=== PATIENT | male | born 1960 | race American Indian/Alaskan Native ===

== ENCOUNTER 2018-02-09 07:35 | Emergency (ER) | payer BC, OTHER ==
[~2018-02-09] VITALS: Ht 175.3 cm; Wt 82.2 kg
[2018-02-09 07:57] LABS: BASOPHILS % (AUTO) 0.3 % (0-1); EOSINOPHILS # (AUTO) 0.2 X10'3 (0-0.9); EOSINOPHILS % (AUTO) 2.4 % (0-6); HEMATOCRIT 38.4 % (42.0-52.0); HEMOGLOBIN 12.9 g/dl (14.0-17.9); LYMPHOCYTES # (AUTO) 0.7 X10'3 (1.1-4.8); LYMPHOCYTES % (AUTO) 9.1 % (21-51); MEAN CORPUSCULAR HEMOGLOBIN 29.5 PG (27.0-31.0); MEAN CORPUSCULAR HGB CONC 33.5 % (33.0-36.5); MEAN PLATELET VOLUME 7.8 FL (7.4-10.4); MONOCYTES # (AUTO) 0.8 X10'3 (0-0.9); MONOCYTES % (AUTO) 10.4 % (2-12); NEUTROPHILS # (AUTO) 5.9 X10'3 (1.8-7.7); NEUTROPHILS % (AUTO) 77.8 % (42-75); PLATELET COUNT 292 X10'3 (140-440); RED BLOOD COUNT 4.37 X10'6 (4.70-6.10); RED CELL DISTRIBUTION WIDTH 15.3 % (11.5-14.5); WHITE BLOOD COUNT 7.5 X10'3 (4.5-11.0)
[2018-02-09 08:13] LABS: ALANINE AMINOTRANSFERASE 12 U/L (12-78); ALBUMIN 3.4 G/DL (3.4-5.0); ALBUMIN/GLOBULIN RATIO 0.8 (1.1-1.5); ALKALINE PHOSPHATASE 67 IU/L (46-116); AMYLASE 66 U/L (25-115); ANION GAP 9 (8-16); ASPARTATE AMINO TRANSFERASE 13 U/L (10-37); BILIRUBIN,TOTAL 0.3 MG/DL (0.1-1.0); BLOOD UREA NITROGEN 18 MG/DL (7-18); BUN/CREATININE RATIO 17.6 (5.4-32.0); CALCIUM 8.7 MG/DL (8.5-10.1); CHLORIDE 104 MMOL/L (99-107); CREATININE 1.02 MG/DL (0.60-1.10); GLUCOSE 114 MG/DL (70-104); LIPASE 110 U/L (73-393); POTASSIUM 3.4 MMOL/L (3.5-5.1); SODIUM 142 MMOL/L (135-145); TOTAL CARBON DIOXIDE 28.9 MMOL/L (24-32); TOTAL PROTEIN 7.8 G/DL (6.4-8.2); eGFR 75 ML/MIN
[2018-02-09 08:14] LABS: PROTHROMBIN TIME 10.2 SECONDS (9.0-12.0)
[2018-02-09] MEDS ORDERED: ondansetron 4mg rapidly disintigrating tab PO ONE (08:20)
[2018-02-09] MEDS ORDERED: mag hydrox/Alum hydrox/simeth 30ml oral suspension PO ONE (08:30)
[2018-02-09 08:46] LABS: COLOR,URINE YELLOW (Yellow); GLUCOSE, URINE NEGATIVE (Neg); KETONES,URINE NEGATIVE (Neg); LEUKOCYTE ESTERASE ,URINE NEGATIVE (Neg); NITRITES, URINE NEGATIVE (Neg); OCCULT BLOOD,URINE SMALL (Neg); PH,URINE 5.5 (4.8-8.0); PROTEIN,URINE NEGATIVE (Neg); UROBILINOGEN,URINE 0.2 E.U/dL (0.2-1.0)
[2018-02-09 08:56] LABS: CLARITY,URINE SLIGHTLY CLOUDY (Clear); UA COLLECTION TYPE CLN CATCH MIDSTREAM
[2018-02-09 08:58] LABS: BACTERIA,URINE NONE SEEN /HPF (Neg); MUCUS STRANDS MANY /LPF (Neg); RBC,URINE 0-2 /HPF (0-2); SQUAMOUS EPITHELIAL CELL,UR NONE SEEN /LPF (FEW); WBC,URINE 0-4 /HPF (0-4)
[2018-02-09] MEDS: morphine 4 MG/ML inj SYRINge IV PRN ×2 (09:40→10:24)
[2018-02-09] MEDS ORDERED: morphine 4 MG/ML inj SYRINge IV ONE (10:15)
[2018-02-09] MEDS ORDERED: ONDA4TAB6 PO (10:34)
[2018-02-09 10:45] VITALS: BP 136/74
[2018-02-09] MEDS ORDERED: PRED5TAB PO (23:56)
[2018-02-09] MEDS ORDERED: METH2.5T PO (23:56)
== END 2018-02-09 10:43 | disposition home or self-care (01) ==
LOC: ER 07:36
DX: R10.13 Epigastric pain (principal); R11.0 Nausea
CPT/HCPCS: 36415; 74176; 80053; 81001; 82150; 83690; 85025; 85610; 96374; 96376; 99285; J2270

== ENCOUNTER 2018-02-09 23:46 | Inpatient (IN) | payer BC ==
[~2018-02-09] VITALS: Ht 172.7 cm; Wt 80.0 kg
[~2018-02-09 23:46] MED LIST: ONDA4TAB6 PO
[2018-02-09] MEDS ORDERED: HYDROmorphone 1 mg/ml syringe IV PRN (23:55)
[2018-02-09] MEDS ORDERED: normal saline 1000ML IV soln IVB ONE ×2 (23:55)
[2018-02-09] MEDS ORDERED: diphenhydrAMINE 50 mg/ml inj IV ONE (23:55)
[2018-02-09] MEDS ORDERED: metoclopramide 5 mg/ml inj IV ONE (23:55)
[2018-02-09] MEDS ORDERED: LORazepam 2 mg/ml vial IV ONE (23:55)
[2018-02-09] MEDS ORDERED: PRED5TAB PO (23:56)
[2018-02-09] MEDS ORDERED: METH2.5T PO (23:56)
[2018-02-10] VITALS (31 sets, daily range): BP systolic 94–125; BP diastolic 56–82
[2018-02-10 00:23] LABS: ALANINE AMINOTRANSFERASE 18 U/L (12-78); ALBUMIN/GLOBULIN RATIO 0.7 (1.1-1.5); ALKALINE PHOSPHATASE 60 IU/L (46-116); ANION GAP 10 (8-16); ASPARTATE AMINO TRANSFERASE 14 U/L (10-37); BILIRUBIN,TOTAL 0.8 MG/DL (0.1-1.0); BLOOD UREA NITROGEN 12 MG/DL (7-18); BUN/CREATININE RATIO 10.8 (5.4-32.0); CALCIUM 8.5 MG/DL (8.5-10.1); CHLORIDE 102 MMOL/L (99-107); CREATININE 1.11 MG/DL (0.60-1.10); GLUCOSE 123 MG/DL (70-104); LIPASE 74 U/L (73-393); POTASSIUM 3.6 MMOL/L (3.5-5.1); SODIUM 140 MMOL/L (135-145); TOTAL CARBON DIOXIDE 28.5 MMOL/L (24-32); TOTAL PROTEIN 7.2 G/DL (6.4-8.2); eGFR 68 ML/MIN
[2018-02-10 00:48] LABS: BASOPHILS % (AUTO) 0 % (0-1); EOSINOPHILS # (AUTO) 0.1 X10'3 (0-0.9); EOSINOPHILS % (AUTO) 0.9 % (0-6); HEMATOCRIT 38.9 % (42.0-52.0); HEMOGLOBIN 12.9 g/dl (14.0-17.9); MEAN CORPUSCULAR HEMOGLOBIN 29.3 PG (27.0-31.0); MEAN CORPUSCULAR HGB CONC 33.2 % (33.0-36.5); MEAN CORPUSCULAR VOLUME 88.3 FL (78-98); MEAN PLATELET VOLUME 8.2 FL (7.4-10.4); MONOCYTES # (AUTO) 1.5 X10'3 (0-0.9); MONOCYTES % (AUTO) 10.1 % (2-12); NEUTROPHILS # (AUTO) 12.1 X10'3 (1.8-7.7); PLATELET COUNT 308 X10'3 (140-440); RED BLOOD COUNT 4.41 X10'6 (4.70-6.10); RED CELL DISTRIBUTION WIDTH 15.5 % (11.5-14.5); WHITE BLOOD COUNT 14.7 X10'3 (4.5-11.0)
[2018-02-10 01:19] LABS: ANISOCYTOSIS 1+; PLATELET ESTIMATE NORMAL; TOTAL CELLS COUNTED 100
[2018-02-10 02:04] LABS: CLARITY,URINE CLEAR (Clear); COLOR,URINE YELLOW (Yellow); GLUCOSE, URINE NEGATIVE (Neg); KETONES,URINE 15 mg/dl (Neg); LEUKOCYTE ESTERASE ,URINE NEGATIVE (Neg); NITRITES, URINE NEGATIVE (Neg); OCCULT BLOOD,URINE SMALL (Neg); PROTEIN,URINE NEGATIVE (Neg); UROBILINOGEN,URINE 0.2 E.U/dL (0.2-1.0)
[2018-02-10] MEDS ORDERED: levoFLOXACIN-Levaquin 750MG/D5 150 ML IV STA (02:17)
[2018-02-10] MEDS ORDERED: piperacillin/tazo 3.375gm/50ml 50 ML IV STA (02:31)
[2018-02-10 02:34] LABS: UA COLLECTION TYPE CLN CATCH MIDSTREAM
[2018-02-10 02:36] LABS: BACTERIA,URINE FEW /HPF (Neg); RBC,URINE 0-2 /HPF (0-2); SQUAMOUS EPITHELIAL CELL,UR FEW /LPF (FEW); WBC,URINE 0-4 /HPF (0-4)
[2018-02-10] MEDS ORDERED: morphine 2 MG/ML inj. syringe IV PRN ×3 (03:50→12:25)
[2018-02-10] MEDS ORDERED: ondansetron/PF 4mg/2ml inj IV PRN ×2 (03:50→13:45)
[2018-02-10] MEDS: normal saline 1000ml 1,000 ML IV SCH ×3 (04:42→23:50)
[2018-02-10] MEDS ORDERED: methylPREDNISolone sod succ/PF 40mg inj. IV ONE ×2 (08:00→08:25)
[2018-02-10] MEDS: piperacillin/tazo 3.375gm/50ml 50 ML IV SCH ×3 (08:30→23:34)
[2018-02-10] MEDS ORDERED: BUPIVAcaine/PF 2.5mg/ml (0.25%) 10ml vial ONE (12:47)
[2018-02-10] MEDS ORDERED: ceFAZolin 1000mg inj ONE (12:47)
[2018-02-10] MEDS ORDERED: sevoflurane 250ml liquid IH ONE (13:04)
[2018-02-10] MEDS ORDERED: propofol inj 20 ML IV ONE (13:06)
[2018-02-10] MEDS ORDERED: midazolam 2 mg/2 ml injection ONE (13:06)
[2018-02-10] MEDS ORDERED: rocuronium 10mg/ml inj IV ONE ×2 (13:06→13:56)
[2018-02-10] MEDS ORDERED: fentaNYL /PF 50mcg/ml 5ml ampule ONE (13:06)
[2018-02-10] MEDS ORDERED: ringers solution, lacted 1,000 ML IV SCH (13:42)
[2018-02-10] MEDS ORDERED: meperidine/PF 25mg/ml syringe IV PRN ×3 (13:45)
[2018-02-10] MEDS ORDERED: morphine 4 MG/ML inj SYRINge IV PRN ×2 (13:45)
[2018-02-10] MEDS ORDERED: proCHLORperazine 10 MG/2 ml inj IV PRN (13:45)
[2018-02-10] MEDS ORDERED: dexamethasone sod phosphate 4mg/ml inj. ONE (14:01)
[2018-02-10] MEDS ORDERED: neostigmine methylsulfate 1 MG/ML 10ml vial ONE (14:24)
[2018-02-10] MEDS ORDERED: ondansetron/PF 4mg/2ml inj ONE (14:24)
[2018-02-10] MEDS ORDERED: glycopyrrolate 0.2mg/ml inj ONE (14:24)
[2018-02-10] MEDS ORDERED: CADD PCA waste documentation MC SCH (15:50)
[2018-02-10] MEDS: HYDROmorphone/NS 1 mg/ml CADD 50 ML IV SCH ×5 (16:13→23:00)
[2018-02-10] MEDS: lactobacillus rhamnosus 10,000 MMU CELLS/CAPSULE PO SCH (19:23)
[2018-02-11] VITALS: BP 104/68
[2018-02-11] MEDS: HYDROmorphone/NS 1 mg/ml CADD 50 ML IV SCH ×4 (01:00→07:00)
[2018-02-11 04:00] VITALS: BP 108/70
[2018-02-11] MEDS: normal saline 1000ml 1,000 ML IV SCH ×2 (04:27→15:03)
[2018-02-11 05:14] LABS: BASOPHILS % (AUTO) 0 % (0-1); EOSINOPHILS % (AUTO) 0 % (0-6); HEMATOCRIT 35.2 % (42.0-52.0); HEMOGLOBIN 11.6 g/dl (14.0-17.9); LYMPHOCYTES # (AUTO) 0.3 X10'3 (1.1-4.8); LYMPHOCYTES % (AUTO) 1.9 % (21-51); MEAN CORPUSCULAR HEMOGLOBIN 29.3 PG (27.0-31.0); MEAN CORPUSCULAR HGB CONC 32.9 % (33.0-36.5); MEAN CORPUSCULAR VOLUME 89.1 FL (78-98); MONOCYTES # (AUTO) 0.9 X10'3 (0-0.9); MONOCYTES % (AUTO) 5.1 % (2-12); NEUTROPHILS # (AUTO) 16.8 X10'3 (1.8-7.7); PLATELET COUNT 276 X10'3 (140-440); RED BLOOD COUNT 3.95 X10'6 (4.70-6.10); RED CELL DISTRIBUTION WIDTH 15.3 % (11.5-14.5); WHITE BLOOD COUNT 18.1 X10'3 (4.5-11.0)
[2018-02-11 05:46] LABS: ALANINE AMINOTRANSFERASE 87 U/L (12-78); ALBUMIN 2.3 G/DL (3.4-5.0); ALBUMIN/GLOBULIN RATIO 0.6 (1.1-1.5); ALKALINE PHOSPHATASE 53 IU/L (46-116); ANION GAP 9 (8-16); ASPARTATE AMINO TRANSFERASE 95 U/L (10-37); BILIRUBIN,TOTAL 0.6 MG/DL (0.1-1.0); BLOOD UREA NITROGEN 16 MG/DL (7-18); BUN/CREATININE RATIO 14.8 (5.4-32.0); CALCIUM 8.2 MG/DL (8.5-10.1); CHLORIDE 104 MMOL/L (99-107); CREATININE 1.08 MG/DL (0.60-1.10); GLUCOSE 126 MG/DL (70-104); POTASSIUM 4.2 MMOL/L (3.5-5.1); SODIUM 141 MMOL/L (135-145); TOTAL CARBON DIOXIDE 27.8 MMOL/L (24-32); TOTAL PROTEIN 6.4 G/DL (6.4-8.2); eGFR 70 ML/MIN
[2018-02-11] MEDS ORDERED: morphine 2 MG/ML inj. syringe IV PRN (09:20)
[2018-02-11] MEDS ORDERED: HYDROcodone/acetaminophen 10/325mg tab PO PRN (09:20)
[2018-02-11] MEDS: piperacillin/tazo 3.375gm/50ml 50 ML IV SCH ×3 (09:23→23:26)
[2018-02-11] MEDS: lactobacillus rhamnosus 10,000 MMU CELLS/CAPSULE PO SCH ×2 (09:23→19:31)
[2018-02-11] MEDS ORDERED: HYDROmorphone inj. 0.5 MG/0.5 ML DISP.SYRIN IV PRN (09:35)
[2018-02-11 10:08] VITALS: BP 102/61
[2018-02-11] MEDS: HYDROcodone/acetaminophen 5mg/325mg tablet PO PRN (10:35)
[2018-02-11 12:42] VITALS: BP 103/60
[2018-02-11] MEDS: enoxaparin 40mg/0.4ml syringe SUBCUT SCH (13:17)
[2018-02-11 18:00] VITALS: BP 113/73
[2018-02-12] VITALS: BP 119/66
[2018-02-12] MEDS: HYDROcodone/acetaminophen 5mg/325mg tablet PO PRN ×3 (00:49→23:41)
[2018-02-12] MEDS: normal saline 1000ml 1,000 ML IV SCH ×3 (03:03→23:41)
[2018-02-12 05:11] LABS: BASOPHILS % (AUTO) 0 % (0-1); EOSINOPHILS # (AUTO) 0.2 X10'3 (0-0.9); EOSINOPHILS % (AUTO) 1.5 % (0-6); HEMOGLOBIN 9.9 g/dl (14.0-17.9); LYMPHOCYTES # (AUTO) 0.6 X10'3 (1.1-4.8); LYMPHOCYTES % (AUTO) 3.7 % (21-51); MEAN CORPUSCULAR HEMOGLOBIN 29.1 PG (27.0-31.0); MEAN CORPUSCULAR HGB CONC 32.9 % (33.0-36.5); MEAN CORPUSCULAR VOLUME 88.3 FL (78-98); MEAN PLATELET VOLUME 8.2 FL (7.4-10.4); MONOCYTES # (AUTO) 1.2 X10'3 (0-0.9); NEUTROPHILS # (AUTO) 12.9 X10'3 (1.8-7.7); NEUTROPHILS % (AUTO) 86.8 % (42-75); PLATELET COUNT 256 X10'3 (140-440); RED CELL DISTRIBUTION WIDTH 15.6 % (11.5-14.5); WHITE BLOOD COUNT 14.9 X10'3 (4.5-11.0)
[2018-02-12 05:31] LABS: ALANINE AMINOTRANSFERASE 66 U/L (12-78); ALBUMIN 2.3 G/DL (3.4-5.0); ALBUMIN/GLOBULIN RATIO 0.6 (1.1-1.5); ALKALINE PHOSPHATASE 61 IU/L (46-116); ANION GAP 7 (8-16); ASPARTATE AMINO TRANSFERASE 45 U/L (10-37); BILIRUBIN,TOTAL 0.5 MG/DL (0.1-1.0); BLOOD UREA NITROGEN 15 MG/DL (7-18); BUN/CREATININE RATIO 14.7 (5.4-32.0); CALCIUM 8.2 MG/DL (8.5-10.1); CHLORIDE 107 MMOL/L (99-107); CREATININE 1.02 MG/DL (0.60-1.10); GLUCOSE 113 MG/DL (70-104); POTASSIUM 4.2 MMOL/L (3.5-5.1); SODIUM 145 MMOL/L (135-145); TOTAL CARBON DIOXIDE 30.7 MMOL/L (24-32); TOTAL PROTEIN 6.2 G/DL (6.4-8.2); eGFR 75 ML/MIN
[2018-02-12 07:12] VITALS: BP 115/57
[2018-02-12] MEDS: enoxaparin 40mg/0.4ml syringe SUBCUT SCH (08:00)
[2018-02-12] MEDS: piperacillin/tazo 3.375gm/50ml 50 ML IV SCH ×3 (09:45→23:41)
[2018-02-12] MEDS: lactobacillus rhamnosus 10,000 MMU CELLS/CAPSULE PO SCH ×2 (09:45→21:08)
[2018-02-12 11:00] VITALS: BP 106/61
[2018-02-12 18:00] VITALS: BP 108/66
[2018-02-13] VITALS: BP 115/63
[2018-02-13 05:08] LABS: BASOPHILS % (AUTO) 0.2 % (0-1); EOSINOPHILS # (AUTO) 0.1 X10'3 (0-0.9); EOSINOPHILS % (AUTO) 0.9 % (0-6); HEMATOCRIT 30.5 % (42.0-52.0); HEMOGLOBIN 9.9 g/dl (14.0-17.9); LYMPHOCYTES # (AUTO) 0.9 X10'3 (1.1-4.8); LYMPHOCYTES % (AUTO) 9.3 % (21-51); MEAN CORPUSCULAR HEMOGLOBIN 29.1 PG (27.0-31.0); MEAN CORPUSCULAR HGB CONC 32.4 % (33.0-36.5); MEAN CORPUSCULAR VOLUME 89.8 FL (78-98); MEAN PLATELET VOLUME 7.8 FL (7.4-10.4); MONOCYTES # (AUTO) 1.2 X10'3 (0-0.9); MONOCYTES % (AUTO) 12.2 % (2-12); NEUTROPHILS # (AUTO) 7.7 X10'3 (1.8-7.7); NEUTROPHILS % (AUTO) 77.4 % (42-75); PLATELET COUNT 285 X10'3 (140-440); RED BLOOD COUNT 3.39 X10'6 (4.70-6.10); RED CELL DISTRIBUTION WIDTH 15.7 % (11.5-14.5)
[2018-02-13 05:54] LABS: ALANINE AMINOTRANSFERASE 64 U/L (12-78); ALBUMIN 2.2 G/DL (3.4-5.0); ALBUMIN/GLOBULIN RATIO 0.5 (1.1-1.5); ALKALINE PHOSPHATASE 56 IU/L (46-116); ANION GAP 8 (8-16); ASPARTATE AMINO TRANSFERASE 39 U/L (10-37); BILIRUBIN,TOTAL 0.6 MG/DL (0.1-1.0); BLOOD UREA NITROGEN 11 MG/DL (7-18); BUN/CREATININE RATIO 10.5 (5.4-32.0); CHLORIDE 105 MMOL/L (99-107); CREATININE 1.05 MG/DL (0.60-1.10); GLUCOSE 98 MG/DL (70-104); POTASSIUM 3.6 MMOL/L (3.5-5.1); SODIUM 142 MMOL/L (135-145); TOTAL CARBON DIOXIDE 28.8 MMOL/L (24-32); TOTAL PROTEIN 6.3 G/DL (6.4-8.2); eGFR 73 ML/MIN
[2018-02-13 08:00] VITALS: BP 109/67
[2018-02-13] MEDS: lactobacillus rhamnosus 10,000 MMU CELLS/CAPSULE PO SCH (08:00)
[2018-02-13] MEDS: enoxaparin 40mg/0.4ml syringe SUBCUT SCH (08:00)
[2018-02-13] MEDS: piperacillin/tazo 3.375gm/50ml 50 ML IV SCH (09:18)
[2018-02-13 11:00] VITALS: BP 105/65
[2018-02-13] MEDS ORDERED: HYDR-4383 PO (11:52)
[2018-02-13] MEDS ORDERED: AMOX-580 PO (11:52)
== END 2018-02-13 13:10 | disposition home or self-care (01) | DRG 854 ==
LOC: ER 23:47 → ED HOLD 02-10 03:50 → ORTHO 4S 02-10 04:31 → SUR 3N 02-10 18:02
PROVIDERS: ADMIT Internal Medicine; ATTEND Family Medicine
PROC: BW211ZZ Computerized Tomography (CT Scan) of Abdomen and Pelvis using Low Osmolar Contrast (ICD-10-PCS; 2018-02-10)
PROC: 0FT44ZZ Resection of Gallbladder, Percutaneous Endoscopic Approach (ICD-10-PCS; principal; 2018-02-10 13:04)
DX: A41.9 Sepsis, unspecified organism (principal); K81.0 Acute cholecystitis; N17.9 Acute kidney failure, unspecified; D64.9 Anemia, unspecified; D86.9 Sarcoidosis, unspecified; K82.A1 Gangrene of gallbladder in cholecystitis; Z88.1 Allergy status to other antibiotic agents
CPT/HCPCS: 96361; 96374; 96375; 99285; Z7506; 36415; 74177; 80053; 81001; 83690; 84145; 85025; 87070; 93005; A7000; G0378; J0690; J1100; J1170; J1200; J1650; J1956; J2060; J2250; J2270; J2405; J2543; J2704; J2710; J2765; J2920; J3010; J3490; J7030; J7120

== ENCOUNTER 2018-02-22 14:50 | Outpatient (CLI) | payer BC ==
[~2018-02-22 14:50] MED LIST changes: +AMOX-580 PO; +HYDR-4383 PO; +METH2.5T PO; +PRED5TAB PO
[2018-02-22] MEDS ORDERED: iohexol 350MG/ML 100ml bottle IV ONE (15:04)
== END 2018-02-22 23:59 | disposition home or self-care (01) ==
LOC: 64 CT 14:50
PROVIDERS: ATTEND Surgery
DX: J98.11 Atelectasis (principal); R06.02 Shortness of breath; Z90.49 Acquired absence of other specified parts of digestive tract
CPT/HCPCS: 71275; Q9967